=== PATIENT | male | born 1960 | race Two or more races ===

== ENCOUNTER 2025-03-01 14:13 | Outpatient (AMB) | payer OTHER, SELFPAY ==
--- OUTSIDE RECORDS SUMMARY | 2025-02-28 11:15 | XMS_ITS | Encounter Summary ---
Author Organization [facility] Address [address] [place] [address] Care Team Providers Care Green Prize Packer Name Role Phone Rere Torres MD Primary Care Provider [phone] Reason for Referral * Imaging (Emergency) - Authorized Specialty Diagnoses / Procedures Referred By Scott t Referred To Contact Diagnoses Leg edema, right Procedures Vascular US duplex lower extremity venous right Rere Torres MD [address] [place], [place] Phone: tel: fax: [facility] Referral ID Status Reason Start Date Expiration Date V isits Requested Visits Authorized [id number] Authorized 02/23/2025 02/23/2026 1 1 Reason for Visit * Imaging (Emergency) - Authorized Specialty Diagnoses / Procedures Referred By Scott cruz Referred To Contact Diagnoses Leg edema, right Procedures Vascular US duplex lower extremity venous right Rere Torres MD [address], [place] Phone: tel: fax: [facility] Referral ID Status Reason Start Date Expiration Date V isits Requested Visits Authorized [id number] Authorized 02/23/2025 02/23/2026 1 1 Encounter Details Date Type Department Care Team (Latest Contact Info) Description 02/28/2025 11:15 AM EDT - 02/28/2025 11:59 PM EDT Hospital Encounter Ultrasound - [facility] [address] [place] [address] Leg edema, right Discharge Disposition: Home or Self Care Social History Tobacco Use Types Packs/Day Years Used Date Smoking Tobacco: Never Smokeless Tobacco: Never Alcohol Use Standard Drinks/Week Comments Never 0 (1 standard drink = 0.6 oz pur e alcohol) Sex and Gender Information Value Date Recorded Sex Assigned at Not on file Legal Sex Male 2:47 PM EST Gender Identity Not on file Sexual Orientation Not on file documented as of this encounter Medications at Time of Discharge albuterol 2.5 mg /3 mL (0.083 %) nebulizer solution Inhale 3 mL (2.5 mg total) by mouth every 6 (six) hours if needed. 10/11/2024 atorvastatin (Lipitor) 40 mg tabletIndications:M ixed hyperlipidemia Take 1 tablet (40 mg total) by mouth at bedtime. 90 each 1 01/11/2025 07/10/20 25 brimonidine (ALPHAGAN) 0.2 % ophthalmic solution Administer 1 drop into both eyes 2 (two) times a day. 11/01/2024 ibuprofen (ADVIL,MOTRIN) 200 mg tablet 3 TABLET BY MOUTH EVERY 8 HOURS NEEDED FOR FEVER 10/28/2024 ketorolac (ACULAR) 0.5 % ophthalmic solution 1 drop. 10/17/2024 lisinopril (PRINIVIL,ZESTRIL) 40 mg tabletIndications:P rimary hypertension Take 1 tablet (40 mg total) by mouth 1 (one) time each day. 90 each 1 01/11/2025 07/10/20 25 prednisoLONE acetate (PRED FORTE) 1 % ophthalmic suspension Administer 1 drop into the right eye 4 (four) times a day. 10/25/2024 sodium chloride (DEJA 128) 5 % ophthalmic solution Administer 1 drop into both eyes 3 (three) times a day. 11/03/2024 sodium chloride 5 % ophthalmic ointment Apply 1 Application to both eyes if needed. 11/04/2024 documented as of this encounter Discharge Disposition Disposition Code Departure Means Destination Home or Self Care documented in this encounter Plan of Treatment Upcoming Encounters Date Type Department Care Team (Late st Contact Info) Description 03/01/2025 6:00 PM EDT Treatment [address] [phone] Vivek George, PT [address] [place] [address] 03/06/2025 9:30 AM EDT Treatment [address] [phone] Vivek George, PT [address] [place] [address] 03/08/2025 11:30 AM EDT Treatment [address] [phone] Jean Bang, CLIENT SERVICE ADMINISTRATOR 03/13/2025 1:45 PM EDT Treatment [address] [phone] Jean Bang, CLIENT SERVICE ADMINISTRATOR 03/15/2025 10:00 AM EDT Treatment [address] [phone] Vivek George, PT [address] [place] [address] 03/20/2025 8:30 AM EDT Treatment [address] [phone] Vivek George, PT [address] [place] [address] 03/22/2025 10:30 AM EDT Treatment [address] [phone] Vivek George, PT [address] [place] [address] 04/17/2025 2:00 PM EDT Appointment [facility] [address] [place] [address] Arthur Diehl MD [address] [facility] [address] [place] [address] 05/29/2025 12:00 PM EDT Office Visit Internal Medicine - [facility] [address], [place] [phone] Rere Torres MD [address] [place], [place] documented as of this encounter Goals Goal Patient Goal Type Associated Problems Recent Progress Patient-Stated? Author less pain General Yes Vivek George, PT PT STG x 8 visits from [facility] 02/20/25 General No Vivek George, PT Note: [x] = goal MET [] = goal NOT MET [] Pt will achieve neutral ankle [] Pt will be able to perform full bridge to allow improved bed mobility [] Pt will improve df to 4+/5 [] Pt will improve sit to stand to 1 from standard chair PT LTG x 16 from [facility] 02/20/25 General No Vivek George, PT Note: [x] = goal MET [] = goal NOT MET [] Pt will be able to perform car transfers without UE [] Pt will be able to negotiate 1 flight of stairs reciprocally [] Pt will be able ambulate 1/4 mile as needed documented as of this encounter Procedures Procedure Name Priority Date/Time Associated Diagnosis Comments VAS US DUPLEX LOWER EXT VENOUS RIGHT STAT 02/28/2025 11:47 AM EDT Leg edema, right documented in this encounter Results * Vascular US duplex lower extremity venous right (02/28/2025 11:47 AM EDT) Anatomical Region Laterality Modality Vascular, Abdomen Ultrasound 02/28/2025 11:5 9 AM EDT Impressions 02/28/2025 11:59 AM EDT No deep venous thrombosis in the right femoropopliteal system. -------- FINAL REPORT -------- Dictated By: Elaine Andrews Dictated Date: 02/28/2025 11:59 ET Assigned Physician: Elaine Andrews Reviewed and Electronically Signed By: Elaine Andrews Signed Date: 02/28/2025 11:59 ET Workstation ID: [id number] Transcribed By: Self Edit Transcribed Date: 02/28/2025 11:59 ET Narrative 02/28/2025 11:59 AM EDT EXAM: Venous Doppler unilateral, right INDICATIONS: Edema TECHNIQUE: Duplex venous evaluation of the lower extremity was performed utilizing graded compression, color and spectral Doppler interrogation. COMPARISON: None FINDINGS: There is normal morphology, compressibility, Doppler flow, and augmentation of the right common femoral, superficial femoral, and popliteal veins. The posterior tibial and peroneal veins demonstrate patency Procedure Note Elaine Andrews MD - 02/28/2025 EXAM: Venous Doppler unilateral, right INDICATIONS: Edema TECHNIQUE: Duplex venous evaluation of the lower extremity was performedutilizing graded compression, color and spectral Doppler interrogation. COMPARISON: None FINDINGS: There is normal morphology, compressibility, Doppler flow, andaugmentation of the right common femoral, superficial femoral, andpopliteal veins. The posterior tibial and peroneal veins demonstratepatency IMPRESSION: No deep venous thrombosis in the right femoropopliteal system. -------- FINAL REPORT -------- Dictated By: Elaine Andrews Dictated Date: 02/28/2025 11:59 ET Assigned Physician: Elaine Andrews Reviewed and Electronically Signed By: Elaine Andrews Signed Date: 02/28/2025 11:59 ET Workstation ID: [id number] Transcribed By: Self Edit Transcribed Date: 02/28/2025 11:59 ET Rere Torres MD CV VASCULAR PROCEDURES Final R esult documented in this encounter Visit Diagnoses Diagnosis Leg edema, right documented in this encounter Care Teams Green Prize Packer Relationship Specialty Start Date End Date Rere Torres MD [address] [place] [address] PCP - General Internal Medicine 10/24/24 documented as of this encounter
--- NOTE | 2025-03-01 14:16 | MHC.OFFVIS ---
Vital Signs 03/01/25 14:20 Height 5 ft 8 in Weight 259 lb 6 oz BMI 39.4 BP 110/70 Blood Pressure Location Lt brachial Pulse 70 Pulse Source Pulse Oximeter Pulse Oximetry (%) 96 Oxygen Delivery Method Room Air Intake Visit Reasons: ENP - Snoring, Fatigue, Headache Intake Note: Patient presents TOOL CLERK Snoring. Patient states some snoring. wakes up around 2:30 and wont fall back asleep till like 5. when has significate other sleeps better then if alone Journeyman Power Plant Operator Required: Yes Journeyman Power Plant Operator Services: Journeyman Power Plant Operator Offered & Declined Journeyman Power Plant Operator Name: self Information Interpreted: non-clinical & clinical Accompanied by: Self / Same As Patient Allergies shellfish derived (shellfish) Allergy (Unknown, Verified 03/01/25 14:22) Unknown HPI Comments Details: 64 year old male he is a new patient, referred to us for sleep evaluation. PMH: H/o asthma, obesity, heart murmur and His vision is obstructed, he had a surgical procedure at the [facility] for cataracts and now has retinal tears. He uses 5 different eye drops daily due to blurry vision and spots in the r. eye. L. eye vision is preserved. He will f/u with his eye surgeon in February 2025. Pt. c/o snoring loudly which gets louder when he is fatigued. He has difficulty staying asleep. He goes to bed at 10pm and wakes up at 3am because he can't fall back asleep, then watches tv all night until 6am, and starts his day. He denies parasomnias, grinding his teeth, and morning headaches. He feels anxious, his mood can be irritable when he does not sleep properly. He has depression and anxiety. He has one cup of coffee daily, his diet is poor. He says his STM is poor at base line, he burnt his beans today as he was distracted by a phone call. He panics when he forgets names, and started to use his pill box for medications. He does not like to drink water, but is trying now. He does not smoke, drinks beer and cocktails socially. [facility] Medical History Asthma Leg edema, right Other fatigue Chronic nonintractable headache Snoring Mixed hyperlipidemia Prostate cancer Severe obesity HTN (hypertension) Surgical History History of hernia surgery History of surgery on lower extremity H/O eye surgery Family History Father Heart murmur Maternal Grandmother Glaucoma Social History Patient Tobacco Use Status: Never used Tobacco e-Cigarette/Vaping Use: Never Used Physical Exam Vital Signs: Last Vital Signs Pulse 70 03/01/25 14:20 BP 110/70 03/01/25 14:20 Pulse Ox 96 03/01/25 14:20 Oxygen Delivery Method Room Air 03/01/25 14:20 BMI result Body Mass Index 39.4 Const General: cooperative, comfortable and no acute distress Orientation/consciousness: patient oriented x3 Limitations: language barrier HEENT Face and sinus: Yes face symmetric Throat: Yes other ([place] score 4) Eyes Pupils: Equal, round and reactive pupils present Neck Neck: Yes full ROM Resp Effort & Inspection: normal respiratory effort and able to speak in complete sentences Neuro General: patient oriented x3 and moves all extremities Cranial nerves: Yes Facial sensation intact/muscles of mastication intact, Yes Equal, round and reactive pupils present, Yes Normal accommodation reflex present, Yes Normal facial strength present, Yes Midline tongue present, Yes Ability to bilaterally rotate head present (with limited rom to the r>L) and Yes Ability to bilaterally elevate shoulders present Gait exam (Neuro): Normal gait present Motor exam (neuro): 5/5 motor strength present throughout and Normal motor muscle tone present throughout Psych Appearance: grossly normal Affect: normal affect Attitude: cooperative Thought content: Normal thought content present Assessment & Plan Assessment & Plan (1) Anxiety and depression: Code(s): F41.9 - Anxiety disorder, unspecified; F32.A - Depression, unspecified Category: Medical (2) Excessive daytime sleepiness: Code(s): G47.19 - Other hypersomnia Category: Medical Plan HST to r/o ranjith labs to r/o excessive daytime fatigue Orders: Orders RT home sleep study Today G47.19 - Other hypersomnia Ferritin Today F32.A - Depression, unspecified, F41.9 - Anxiety disorder, unspecified, G47.33 - Obstructive sleep apnea (adult) (pediatric) Hemoglobin A1c Today F32.A - Depression, unspecified, F41.9 - Anxiety disorder, unspecified, G47.33 - Obstructive sleep apnea (adult) (pediatric) Complete Blood Count no Diff Today F32.A - Depression, unspecified, F41.9 - Anxiety disorder, unspecified, G47.33 - Obstructive sleep apnea (adult) (pediatric) Comprehensive Met. Panel Today F32.A - Depression, unspecified, F41.9 - Anxiety disorder, unspecified, G47.33 - Obstructive sleep apnea (adult) (pediatric) Methylmalonic Acid Today F32.A - Depression, unspecified, F41.9 - Anxiety disorder, unspecified, G47.33 - Obstructive sleep apnea (adult) (pediatric), G47.9 - Sleep disorder, unspecified, R53.83 - Other fatigue IRON PROFILE Today F32.A - Depression, unspecified, F41.9 - Anxiety disorder, unspecified, G47.33 - Obstructive sleep apnea (adult) (pediatric), G47.9 - Sleep disorder, unspecified, R53.83 - Other fatigue Homocysteine Today F32.A - Depression, unspecified, F41.9 - Anxiety disorder, unspecified, G47.33 - Obstructive sleep apnea (adult) (pediatric), G47.9 - Sleep disorder, unspecified, R53.83 - Other fatigue Vitamin D 25-OH Total Today F32.A - Depression, unspecified, F41.9 - Anxiety disorder, unspecified, G47.33 - Obstructive sleep apnea (adult) (pediatric) TSH reflex Free T4 Today F32.A - Depression, unspecified, F41.9 - Anxiety disorder, unspecified, G47.33 - Obstructive sleep apnea (adult) (pediatric) Patient Instructions: Sleep Hygiene provided: set a scheduled bedtime and wake time to help regulate the circadian rhythm and balance the release of pituitary hormones. Sleep in a dark room, temperatures below 68 degrees, and no devices n bed. Limit caffeinated products 6 hours prior to bed, and limit fluids 2-4 hours prior to bed. Gentle night yoga, diffusing essential oils, and playing soft music can be relaxing. Coding Level of Care Code New Pt Level 4 (37620) Diagnoses Anxiety and depression F41.9; F32.A Excessive daytime sleepiness G47.19 Time Spent (min) 25 Comment Evaluation of ranjith Sleep Questionnaire Difficulty falling asleep: No Difficulty staying asleep?: Yes Number of arousals: 3-4x Snoring: Yes Witnessed apneas: Yes Gasping arousals: Yes Nocturia: Yes GERD: No Vivid dreams: No Acting out dreams: No Abnormal behavior in sleep: No Abnormal movements in sleep: Yes Morning headaches: No Excessive daytime sleepiness: No Daytime naps: No Restless legs: No Hallucinations: No Sleep paralysis: Yes Drop attacks: No Sleep Study: No CPAP: No
[2025-03-01 14:20] VITALS: BP 110/70; PULSE 70; O2SAT 96; BMI 39.4
== END 2025-03-01 15:10 | disposition home or self-care (01) ==
LOC: HO.HSMS 14:13
PROVIDERS: PCP Internal Medicine; Visit Provider Physician Assistant Medical
DX: F41.9 Anxiety disorder, unspecified (principal); F32.A Depression, unspecified; G47.19 Other hypersomnia
CPT/HCPCS: 99204

== ENCOUNTER → 2025-03-01 14:13 | Outpatient (BNVA) | payer OTHER, SELFPAY | PROVIDERS: PCP Internal Medicine; Visit Provider Physician Assistant Medical | DX: R06.83 Snoring (principal); F41.9 Anxiety disorder, unspecified; F32.A Depression, unspecified; G47.19 Other hypersomnia | CPT/HCPCS: 99202 ==

== ENCOUNTER → 2025-06-05 09:57 | Outpatient (REF) | payer OTHER, SELFPAY ==
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
--- OUTSIDE RECORDS SUMMARY | 2025-06-05 11:30 | XMS_ITS | Encounter Summary ---
Author Organization [facility] Address [address] [place] [address] Care Team Providers Care Credit Card Interviewer Name Role Phone Rere Torres MD Primary Care Provider [phone] Encounter Details Date Type Department Care Team (Late st Contact Info) Description 05/29/2025 Telephone Internal Medicine - [address] [place], [place] [phone] Rere Torres MD [address] [place], [place] Social History Tobacco Use Types Packs/Day Years [...] PM EDT Sexual Orientation Not on file documented as of this encounter Progress Notes * Krishan Morgan MA - 06/02/2025 2:28 PM EDT Notes from urology is scanned into the chart under medica tab scanned 05/30/25 * Krishan Morgan MA - 05/30/2025 10:29 AM EDT Pt confirmed he was seen in November by urology. Called urology and left vm to medical records to fax over notes * Krishan Morgan MA - 05/30/2025 9:37 AM EDT Pt will have someone who speaks syriac call back please up to [phone] or b side pt will ask for krishan * Rere Torres MD - 05/29/2025 12:57 PM EDT Need recent urology consult note for review documented in this encounter Plan of Treatment Upcoming Encounters Date Type Department Care Team (Late st Contact Info) Description 06/22/2025 9:00 AM EDT Office Visit Internal Medicine - [address] [phone] Horace Pedersen NP [address] [place] [address] 11/30/2025 1:00 PM EDT Office Visit Internal Medicine - [address] [phone] Rere Torres MD [address] [place] [address] documented as of this encounter Goals Goal [...] as needed documented as of this encounter Visit Diagnoses Not on filedocumented in this encounter Care Teams Credit Card Interviewer Relationship Specialty Start Date End Date Rere Torres MD [address] [place] [address] [place] [phone] PCP - General Internal Medicine 10/24/24 documented as of this encounter
--- OUTSIDE RECORDS SUMMARY | 2025-06-05 11:30 | XMS_ITS | Encounter Summary ---
Author Organization [facility] Address [address] [place] [address] Care Team Providers Care Social Worker Health Services Name Role Phone Rere Torres MD Primary Care Provider [phone] Encounter Details Date Type Department Care Team ([facility] Contact Info) Description 06/05/2025 [facility] [address] [place] [phone] Suzy Cleveland [place] Social History Tobacco Use Types Packs/Day [...] as of this encounter Progress Notes * Suzy Cleveland [place] - 06/05/2025 9:49 AM EDT Referral faxed to [facility]. documented in this encounter Plan of Treatment Upcoming Encounters Date Type Department Care Team ([facility] Contact Info) Description 06/22/2025 9:00 AM EDT Office Visit Internal Medicine - [address] [phone] Horace Pedersen NP [address] [place], [place] 11/30/2025 1:00 PM EDT Office Visit Internal Medicine - [address] [phone] Rere Torres MD [address] [place] [address] documented as of this encounter Goals Goal [...] on filedocumented in this encounter Care Teams Social Worker Health Services Relationship Specialty Start Date End Date Rere Torres MD [address] [place] [address] PCP - General Internal Medicine 10/24/24 documented as of this encounter
== END ==
LOC: HO.SL 09:57
PROVIDERS: Visit Provider Physician Assistant Medical
DX: G47.19 Other hypersomnia (principal); R06.83 Snoring
CPT/HCPCS: 95806

== ENCOUNTER → 2025-06-05 10:19 | Outpatient (BNV) | payer OTHER, SELFPAY | PROVIDERS: Visit Provider Psychiatry & Neurology Neurology | DX: R06.83 Snoring (principal) | CPT/HCPCS: 95806 ==

== ENCOUNTER 2025-06-28 08:09 | Outpatient (AMB) | payer OTHER, SELFPAY ==
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
--- NOTE | 2025-06-28 08:25 | A.OFFVIS_ITS ---
Vital Signs 06/28/25 08:27 Height 5 ft 8 in Weight 249 lb 8 oz BMI 37.9 BP 126/84 Blood Pressure Location Rt brachial Position Sitting Pulse 71 Pulse Oximetry (%) 98 Oxygen Delivery Method Room Air Intake Visit Reasons: 3 month Intake Note: Patient presents follow up KIRA. HST in chart(AHI-2, OLESYA-88%) Home Improvement Installer Required: Yes Home Improvement Installer Language: Food Preparation Supervisor Services: Home Improvement Installer Offered & Declined Information Interpreted: non-clinical & clinical Accompanied by: Self / Same As Patient Allergies shellfish derived (shellfish) Allergy (Unknown, Verified 06/28/25 08:32) Unknown HPI Comments Details: 64 year old male is a new patient referral to us for sleep evaluation by his pcp. HST AHI is 2 and oxygen nadirs to 88%, with moderate snoring. PSG is pending PMH: H/o asthma, obesity, heart murmur and vision is obstructed, he had a surgical procedure at the [facility] for cataracts and now has retinal tears. He uses 5 different eye drops daily due to blurry vision and s pots in the r. eye. His l. eye vision is preserved. PMH of R. sided numbness and tingling in head, shoulders and r. arm. he gets anxious and then start to have deficits in his memory. He has Glaucoma and will f/u with a consult for surgery on Jul 10, 2025 with [place] Yannick Sanches -October will have surgery for correction of the procedure. Pt. c/o snoring loudly which gets louder when he is fatigued. He has difficulty staying asleep. He goes to bed at 10pm and wakes up at 3am because he can't fall asleep. He then watches tv all night until 6am, and starts his day. He denies parasomnias, grinding his teeth or clenching his jaws. He continues to be more forgetful and has daily morning headaches which improve with coffee. He is anxious, his mood can be irritable when he does not sleep properly. He has depression and anxiety. His STM is poor at base line, will leave the stove on, if he multi-tasks he forgets many important daily tasks and feel his routine is disturbed, this makes him panic. He started to use his pill box for medications and has started taking notes. He does not like to drink water, but is trying now and remembering to stay hydrated. He does not smoke, drinks beer and cocktails socially. [facility] Medical History Asthma Leg edema, right Other fatigue Chronic nonintractable headache Snoring Mixed hyperlipidemia Prostate cancer Severe obesity HTN (hypertension) Surgical History History of hernia surgery History of surgery on lower extremity H/O eye surgery Family History Father Heart murmur Maternal Grandmother Glaucoma Social History Patient Tobacco Use Status: Never used Tobacco e-Cigarette/Vaping Use: Never Used Physical Exam Vital Signs: Last Vital Signs Pulse 71 06/28/25 08:27 BP 126/84 06/28/25 08:27 Pulse Ox 98 06/28/25 08:27 Oxygen Delivery Method Room Air 06/28/25 08:27 BMI result Body Mass Index 37.9 Const General: cooperative, comfortable and no acute distress Orientation/consciousness: patient oriented x3 Limitations: language barrier HEENT Face and sinus: Yes face symmetric Throat: Yes other ([place] score 4) Eyes Pupils: Equal, round and reactive pupils present Neck Neck: Yes full ROM Resp Effort & Inspection: normal respiratory effort and able to speak in complete sentences Neuro General: patient oriented x3 and moves all extremities Cranial nerves: Yes Facial sensation intact/muscles of mastication intact, Yes Equal, round and reactive pupils present, Yes Normal accommodation reflex present, Yes Normal facial strength present, Yes Midline tongue present, Yes Ability to bilaterally rotate head present (with limited rom to the r>L) and Yes Ability to bilaterally elevate shoulders present Gait exam (Neuro): Normal gait present Motor exam (neuro): 5/5 motor strength present throughout and Normal motor muscle tone present throughout Psych Appearance: grossly normal Affect: normal affect Attitude: cooperative Thought content: Normal thought content present Orientation What is the (year) (season) (date) (day) (month)?: year, season, date, day and month Where are we (state) (county) (town or city) (hospital) (floor)?: state, county, town or city, hospital/clinic and floor Registration Name of 3 unrelated objects clearly and slowly, then ask patient to repeat all 3 of them. (1st repeat determines score. Make sure they can repeat all three): object 1, object 2 and object 3 Attention & Calculation (CHOOSE ONE) Ask pt to begin with 100 & count backward by 7. Stop after 5 repeats. If pt cannot ask them to spell the word WORLD backward.: 93, 86, 79, 72 and 65 Recall Ask patient to repeat the 3 items from question #3.: object 1, object 2 and object 3 Language Show patient a wristwatch & ask what it is. Repeat for pencil.: watch Ask the patient to repeat the phrase 'No ifs, ands, or buts' after you.: correct Ask the patient to 'take a piece of paper with their right hand' 'fold paper in half' 'place paper on floor': take paper in right hand, fold paper in half and place paper on floor Print the sentence 'CLOSE YOUR EYES' on a piece. If patient actually closes eyes then score.: followed written direction Give patient a blank piece of paper & ask to write a sentence. Score if it contains a noun & verb.: sentence contains subject and verb Score Score: 28 Assessment & Plan Assessment & Plan (1) Excessive daytime sleepiness: Code(s): G47.19 - Other hypersomnia Category: Medical (2) Anxiety and depression: Code(s): F41.9 - Anxiety disorder, unspecified; F32.A - Depression, unspecified Category: Medical (3) Insomnia: Code(s): G47.00 - Insomnia, unspecified Category: Medical Qualifiers: Insomnia type: unspecified Qualified Code(s): G47.00 - Insomnia, unspecified Plan HST reviewed with pt today, and psg is pending Jul 04 2025 MRI - MMSE completed today BPH and Nocturia r. sided sciatica ongoing, he has rls. MRI forgetfulness magnesium 400mg po melatonin 5mg f/u in 3 months. Medications: New magnesium oxide 400 mg PO DAILY 90 tabs 0RF sleep difficulties 3 months MDD 400mg G47.00 - Insomnia, unspecified, G47.19 - Other hypersomnia melatonin 5 mg PO ONCE 90 caps 0RF insomnia 3 months MDD 5mg G47.00 - Insomnia, unspecified Coding Level of Care Code Est Pt Level 4 (64693) Diagnoses Excessive daytime sleepiness G47.19 Anxiety and depression F41.9; F32.A Insomnia, unspecified type G47.00 Insomnia type: unspecified
[2025-06-28 08:27] VITALS: BP 126/84; PULSE 71; O2SAT 98; BMI 37.9
== END 2025-06-28 09:22 | disposition home or self-care (01) ==
LOC: HO.HSMC 08:09
PROVIDERS: PCP Internal Medicine; Visit Provider Physician Assistant Medical
DX: G47.19 Other hypersomnia (principal); F41.9 Anxiety disorder, unspecified; F32.A Depression, unspecified; G47.00 Insomnia, unspecified
CPT/HCPCS: 99214

== ENCOUNTER → 2025-06-28 08:09 | Outpatient (BNVA) | payer OTHER, SELFPAY | PROVIDERS: PCP Internal Medicine; Visit Provider Physician Assistant Medical | DX: G47.19 Other hypersomnia (principal); G47.00 Insomnia, unspecified; F32.A Depression, unspecified; F41.9 Anxiety disorder, unspecified | CPT/HCPCS: 99212 ==

== ENCOUNTER → 2025-07-12 20:59 | Outpatient (BNV) | payer OTHER, SELFPAY | PROVIDERS: Visit Provider Psychiatry & Neurology Neurology | DX: R06.83 Snoring (principal) | CPT/HCPCS: 95810 ==

== ENCOUNTER → 2025-07-12 21:03 | Outpatient (REF) | payer OTHER, SELFPAY | LOC: HO.SL 21:03 | PROVIDERS: Visit Provider Physician Assistant Medical | DX: G47.19 Other hypersomnia (principal) | CPT/HCPCS: 95810 ==